=== PATIENT | female | born 1980 | race American Indian/Alaskan Native ===

== ENCOUNTER 2018-02-15 23:25 | Emergency (ER) | payer SELFPAY ==
[2018-02-15 23:41] VITALS: TEMP 98.7
[2018-02-15 23:42] VITALS: BMI 27.3
--- NOTE | 2018-02-16 00:12 | ED PDOC ---
Arrival/HPI - General Chief Complaint: Alcohol Ingestion Time Seen by Provider: 02/15/18 23:49 Historian: Patient, EMS - History of Present Illness Narrative History of Present Illness (Text): 02/16/18 00:08 Corrine Mckoy is a 38 year old female who presents to the Emergency department brought in by EMS for alcohol intoxication tonight. Patient was found outside inebriated by EMS. Limited HPI and ROS secondary to patient's alcohol's intoxication. Symptom Onset: Gradual Symptom Course: Unchanged Activities at Onset: Light Context: Street Past Medical History - Provider Review Nursing Documentation Reviewed: Yes - Infectious Disease Hx of Infectious Diseases: None - Psychiatric Hx Substance Use: No Family/Social History - Physician Review Nursing Documentation Reviewed: Yes Family/Social History: Unknown Family HX Smoking Status: Unknown If Ever Smoked Hx Alcohol Use: No Hx Substance Use: No Allergies/Home Meds Allergies/Adverse Reactions: Allergies Unobtainable Allergy (Verified 02/15/18 23:41) Home Medications: Home Meds Medication Instructions Recorded Confirmed Unobtainable 02/15/18 02/15/18 Review of Systems - Review of Systems Systems not reviewed;Unavailable: Intoxicated Psychiatric: Normal Physical Exam Vital Signs Reviewed: Yes Vital Signs Temp Pulse Resp BP Pulse Ox 02/16/18 06:50 69 18 118/79 99 02/16/18 04:35 78 18 114/70 97 02/15/18 23:40 98.7 F 87 19 108/70 96 Temperature: Afebrile Blood Pressure: Normal Pulse: Regular Respiratory Rate: Normal Appearance: Positive for: Well-Appearing, Comfortable Pain Distress: None Mental Status: Positive for: Alert and Oriented X 3 - Systems Exam Head: Present: Atraumatic, Normocephalic Pupils: Present: PERRL Extroacular Muscles: Present: EOMI Conjunctiva: Present: Normal Mouth: Present: Moist Mucous Membranes Neck: Present: Normal Range of Motion Respiratory/Chest: Present: Clear to Auscultation, Good Air Exchange. No: Respiratory Distress, Accessory Muscle Use Cardiovascular: Present: Regular Rate and Rhythm, Normal S1, S2. No: Murmurs Abdomen: No: Tenderness, Distention, Peritoneal Signs Back: Present: Normal Inspection Upper Extremity: Present: Normal Inspection. No: Cyanosis, Edema Lower Extremity: Present: Normal Inspection. No: Edema Neurological: Present: GCS=15, CN II-XII Intact, Speech Normal Skin: Present: Warm, Dry, Normal Color. No: Rashes Psychiatric: Present: Intoxicated Medical Decision Making ED Course and Treatment: 02/16/18 00:08 Impression: 38 year old female brought in for alcohol intoxication. Plan: -- Labs, alcohol level -- Urinalysis, urine drug screen, urine cultures -- Reassess and disposition Progress Notes: - Lab Interpretations Microbiology Results: Microbiology Results 02/16/18 00:45 Urine,Clean Catch Urine Culture - Final Escherichia Coli Lab Results: 02/16/18 00:35 02/16/18 00:35 Lab Results 02/16/18 00:40: Urine Opiates Screen Negative, Urine Methadone Screen Negative, Ur Barbiturates Screen Negative, Ur Phencyclidine Scrn Positive H, Ur Amphetamines Screen Negative, U Benzodiazepines Scrn Negative, U Oth Cocaine Metabols Negative, U Cannabinoids Screen Negative 02/16/18 00:40: Urine Color Yellow, Urine Appearance Cloudy, Urine pH 6.0, Ur Specific [place] <= 1.005, Urine Protein Negative, Urine Glucose (UA) Negative, Urine Ketones Negative, Urine Blood Negative, Urine Nitrate Positive H, Urine Bilirubin Negative, Urine Urobilinogen 0.2, Ur Leukocyte Esterase Moderate H, Urine RBC 0 - 2, Urine WBC 10 - 15, Ur Epithelial Cells Many, Urine Bacteria Mod 02/16/18 00:35: Alcohol, Quantitative 322 H* 02/16/18 00:35: Salicylates < 1 L, Acetaminophen < 10.0 L 02/16/18 00:35: Sodium 142, Potassium 4.0, Chloride 111 H, Carbon Dioxide 17 L, Anion Gap 19, BUN 16, Creatinine 1.1, Est GFR ( Amer) > 60, Est GFR (Non- Af Amer) 56, Random Glucose 96, Calcium 8.8, Total Bilirubin 0.5, AST 28, ALT 26 , Alkaline Phosphatase 71, Total Protein 7.2, Albumin 3.8, Globulin 3.3, Albumin /Globulin Ratio 1.1 02/16/18 00:35: WBC 13.3 H, RBC 3.87, Hgb 11.6 L, Hct 34.9 L, MCV 90.2, MCH 30.0 , MCHC 33.2, RDW 14.1, Plt Count 231, MPV 11.5 H, Gran % 74.9 H, Lymph % (Auto) 17.8 L, [place] % (Auto) 5.9, Eos % (Auto) 1.2 L, Baso % (Auto) 0.2, Gran # 10.00 H , Lymph # (Auto) 2.4, [place] # (Auto) 0.8 H, Eos # (Auto) 0.2, Baso # (Auto) 0.02 - Scribe Statement The provider has reviewed the documentation as recorded by the Scribdeny Galvez All medical record entries made by the Scribe were at my direction and personally dictated by me. I have reviewed the chart and agree that the record accurately reflects my personal performance of the history, physical exam, medical decision making, and the department course for this patient. I have also personally directed, reviewed, and agree with the discharge instructions and disposition. Disposition/Present on Arrival - Present on Arrival Any Indicators Present on Arrival: No History of DVT/PE: No History of Uncontrolled Diabetes: No Urinary Catheter: No History of Decub. Ulcer: No History Surgical Site Infection Following: None - Disposition Have Diagnosis and Disposition been Completed?: Yes Diagnosis: Alcohol abuse Disposition: HOME/ ROUTINE Disposition Time: 06:30 Condition: GOOD Discharge Instructions (ExitCare): Alcohol Abuse and Alcoholism (DC) Additional Instructions: yobany momin Forms: [facility] (Burkinan)
[2018-02-16 00:56] LABS: BASO # 0.02 K/mm3 (0.0-2.0); BASO % 0.2 % (0.0-3.0); EOS # 0.2 (0.0-0.7); EOS % 1.2 % (1.5-5.0); GRAN % 74.9 % (50.0-68.0); HEMOGLOBIN 11.6 g/dL (12.0-16.0); LYMPH # 2.4 (1.2-3.4); LYMPH % 17.8 % (22.0-35.0); MEAN CELL VOLUME 90.2 fl (80.0-105.0); MEAN CORPUSCULAR HGB CONC 33.2 g/dl (31.0-37.0); MEAN PLATELET VOLUME 11.5 fl (7.0-11.0); MONO # 0.8 (0.1-0.6); MONO % 5.9 % (1.0-6.0); RBC 3.87 10^6/uL (3.5-6.1); RED CELL DISTRIBUTION WIDTH 14.1 % (11.5-14.5); WHITE BLOOD COUNT 13.3 10^3/ul (4.5-11.0)
[2018-02-16 00:56] LABS: URINE BILIRUBIN NEGATIVE (NEGATIVE); URINE BLOOD NEGATIVE (NEGATIVE); URINE GLUCOSE (UA) NEGATIVE (NEGATIVE); URINE LEUKOCYTE ESTERASE MODERATE Leu/uL (NEGATIVE); URINE PROTEIN NEGATIVE mg/dL (<30 mg/dL); URINE UROBILINOGEN 0.2 E.U./dL (<1 E.U./dL)
[2018-02-16 00:58] LABS: ACETAMINOPHEN < 10.0 ug/ml (10.0-20.0); SALICYLATE < 1 mg/dL (2.0-20.0)
[2018-02-16 00:59] LABS: ALB/GLOB RATIO 1.1 (1.1-1.8); ALBUMIN 3.8 g/dL (3.0-4.8); ALT/SGPT 26 U/L (7-56); AST/SGOT 28 U/L (14-36); BLOOD UREA NITROGEN 16 mg/dL (7-21); CALCIUM 8.8 mg/dL (8.4-10.5); GFR AFRICAN-AMERICAN > 60; GFR NON-AFRICAN AMERICAN 56
[2018-02-16 00:59] LABS: URINE APPEARANCE CLOUDY (CLEAR); URINE COLOR YELLOW (YELLOW)
[2018-02-16 01:08] LABS: URINE BACTERIA MOD (NEG); URINE EPITHELIAL CELLS MANY /hpf (0-5); URINE RBC 0 - 2 /hpf (0-2)
[2018-02-16 01:21] LABS: BARBITURATES, UR NEGATIVE (NEGATIVE); BENZODIAZEPINES, UR NEGATIVE (NEGATIVE); OPIATES, UR NEGATIVE (NEGATIVE); PHENCYCLIDINE, UR POSITIVE (NEGATIVE)
[2018-02-16 04:37] VITALS: RESP 18
[2018-02-16 06:51] VITALS: BP 118/79; PULSE 69; O2SAT 99
== END 2018-02-16 06:50 | disposition home or self-care (01) ==
LOC: ED 23:25
DX: F10.10 Alcohol abuse, uncomplicated (principal); Y90.8 Blood alcohol level of 240 mg/100 ml or more
CPT/HCPCS: 80053; 81001; 85025; 87086; 87181; 99283; G0480